=== PATIENT | male | born 2000 | race American Indian/Alaskan Native ===

== ENCOUNTER 2019-05-06 10:32 | Emergency (ER) | payer SELFPAY ==
[2019-05-06 10:37] VITALS: BP 136/74
--- NOTE | 2019-05-06 11:24 | Emergency Department Report ---
HPI - General Chief Complaint: Eye Problems Time Seen by Provider: 05/06/19 11:02 - HPI HPI: 18-year-old -[place] male presents to the emergency department with a complaint of a 3 week history of some eye irritation. There has been eye redness, increased tearing, and the patient says he wakes up with some greenish discharge that sometimes makes it hard to open his eyes in the morning. He has not taken anything for his symptoms prior to presentation. He denies any fever, vision change. No past medical history. ED Past Medical Hx - Past Medical History Previous Medical History?: No - Surgical History Past Surgical History?: No - Social History Smoking Status: Current Every Day Smoker Substance Use Type: None - Medications Home Medications: Home Medications Medication Instructions Recorded Confirmed Last Taken Type Loratadine [Claritin] 10 mg PO DAILY #10 tablet 05/06/19 Unknown Rx Tobramycin [Tobrex] 1 - 2 drop OU Q4H #1 bottle 05/06/19 Unknown Rx ED Review of Systems ROS: Stated complaint: EYE INFECTION Other details as noted in HPI Comment: All other systems reviewed and negative Constitutional: denies: chills, fever Eyes: eye discharge. denies: vision change ENT: denies: ear pain, throat pain Respiratory: denies: cough, shortness of breath Skin: denies: rash, lesions Neurological: denies: headache Physical Exam - Physical Exam Vital Signs: Vital Signs 05/06/19 10:36 Temperature 98.5 F Pulse Rate 59 L Respiratory 18 Rate Blood Pressure 136/74 O2 Sat by Pulse 100 Oximetry Physical Exam: GENERAL: The patient is well-developed well-nourished. HENT: Normocephalic. Atraumatic. Patient has moist mucous membranes. EYES: Extraocular motions are intact. Pupils equal reactive to light bilaterally. Bilateral conjunctival injection. There is some increased tearing. There is some whitish discharge seen to the medial canthus of each ey e. Visual acuity: OD 20/30, OS 20/25, both eyes 20/20. NECK: Supple. Trachea is midline. SKIN: Skin is warm and dry. NEURO: The patient is awake, alert, and oriented. The patient is cooperative. The patient has no focal neurologic deficits. Normal speech. MUSCULOSKELETAL: There is no tenderness or deformity. There is no evidence of acute injury. ED Course Vital Signs 05/06/19 10:36 Temperature 98.5 F Pulse Rate 59 L Respiratory 18 Rate Blood Pressure 136/74 O2 Sat by Pulse 100 Oximetry ED Medical Decision Making - Medical Decision Making Patient presents with some eye irritation, bilateral eye redness, has increased tearing and there is some white discharge seen to the medial canthus of each eye. This appears consistent with a conjunctivitis and will be treated as if it is bacterial. Placed on TobraDex. Given ophthalmology referrals. Will return to the ER with any worsening of symptoms or any acute distress. - Differential Diagnosis bacterial conjunctivitis, viral conjunctivitis, allergic conjunctivitis, ir Critical Care Time: No Critical care attestation.: If time is entered above; I have spent that time in minutes in the direct care of this critically ill patient, excluding procedure time. ED Disposition Clinical Impression: Bilateral conjunctivitis Qualifiers: Conjunctivitis type: acute Acute conjunctivitis type: unspecified Qualified Code(s): H10.33 - Unspecified acute conjunctivitis, bilateral Disposition: - TO HOME OR SELFCARE Is pt being admited?: No Condition: Stable Instructions: Conjunctivitis (ED) Additional Instructions: Please follow-up with an timber framer and I am giving you some referrals for local timber framer. Take the medications as prescribed. Return to the emergency Department with any worsening of your symptoms or any acute distress. Make sure that you do not spread your infection. Make sure to wash her hands with warm water and soap. I recommend changing your pillowcases and sheets. Prescriptions: Loratadine [Claritin] 10 mg PO DAILY #10 tablet Tobramycin [Tobrex] 1 - 2 drop OU Q4H #1 bottle Referrals: HELENA HUI MD [Staff Physician] - 2-3 Days ZACHARY SCHMITZ MD [Staff Physician] - 2-3 Days Time of Disposition: 11:24
== END 2019-05-06 11:53 | disposition home or self-care (01) ==
LOC: ED 10:32
DX: H10.33 Unspecified acute conjunctivitis, bilateral (principal); F17.200 Nicotine dependence, unspecified, uncomplicated; Z79.899 Other long term (current) drug therapy

== ENCOUNTER 2020-08-12 00:22 | Emergency (ER) | payer OTHER ==
[2020-08-12] MEDS ORDERED: SODIUM CHLORIDE 0.9% 1000 ML 1,000 ML IV ONE ×2 (00:36→02:07)
[2020-08-12] MEDS ORDERED: TETANUS,DIPHTHERIA TOXOID ADULT 0.5 ML INJ IM ONE (00:37)
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
[2020-08-12] MEDS ORDERED: SODIUM CHLORIDE IRRI 500 ML 1,000 ML IR ONE (00:47)
[2020-08-12 01:07] LABS: Hematocrit 47.1 % (35.5-45.6); Hemoglobin 15.5 gm/dl (11.8-15.2); Mean Corpuscular HGB Conc 33 % (32-34); Mean Corpuscular Volume 87 fl (84-94); Platelet Count 202 K/mm3 (140-440); Red Blood Count 5.39 M/mm3 (3.65-5.03); Red Cell Distribution Width 13.8 % (13.2-15.2)
[2020-08-12 01:08] LABS: BUN/Creatinine Ratio 14; Blood Urea Nitrogen 15 mg/dL (9-20); Hemolysis Index 23
[2020-08-12 01:21] LABS: INR 0.98 (0.87-1.13)
[2020-08-12 01:22] LABS: Partial Thromboplastin Time 24.5 Sec. (24.2-36.6)
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
[2020-08-12 02:56] LABS: Basophils % (Manual) 0 % (0.0-1.8); Total Cells Counted 100
[2020-08-12 02:57] LABS: Ovalocytes Rare; Platelet Estimate Consistent w Auto
[2020-08-12 06:49] VITALS: BP 135/62
== END 2020-08-12 05:20 | disposition home or self-care (01) ==
LOC: ED 00:22
DX: S02.40CA Maxillary fracture, right side, initial encounter for closed fracture (principal); V89.2XXA Person injured in unspecified motor-vehicle accident, traffic, initial encounter; Y93.89 Activity, other specified; Y92.410 Unspecified street and highway as the place of occurrence of the external cause; Y99.8 Other external cause status
CPT/HCPCS: 36415; 70450; 70486; 71260; 72125; 74177; 80048; 85007; 85025; 85610; 85730; 86850; 86900; 86901; 90471; 90714; 96361; 96365; 99284; J0690; J7030; Q9967; 80320; G0480